=== PATIENT | female | born 1990 | race Hispanic/Latino ===

== ENCOUNTER 2019-05-03 14:40 | Outpatient (CLI) | payer OTHER ==
--- NOTE | 2019-05-03 15:58 | Mammography Report ---
DIGITAL BILATERAL DIAGNOSTIC MAMMOGRAM WITH CAD, 05/03/2019 INDICATION: ABNORMAL BILATERAL BREAST US R92.8. Palpable right breast lump. TECHNIQUE: Digital bilateral mammographic imaging was performed. Spot compression views were obtaine d. This examination was interpreted with the benefit of Computer-aided Detection analysis. COMPARISON: None. Breast Density: The breasts are heterogeneously dense, which may obscure small masses. FINDINGS: Bilateral upper asymmetries demonstrate satisfactory effacement with spot compression. No m ammographic finding at a right upper outer palpable marker. No architectural distortion or suspicious calcifications. IMPRESSION: Negative mammogram. Considering the relatively high density of the breast, recommend bila teral global breast ultrasound with special attention to the upper outer right breast where she feels a lump. Follow up recommendation: Ultrasound Category 0: Incomplete. Needs additional imaging evaluation and/or prior mammograms for comparison. A "normal" or negative report should not discourage follow up or biopsy of a clinically significant f inding. A written summary of these findings will be mailed to the patient. The patient will be entered into a mammography reporting system which will generate a reminder letter for the patient's next appointmen t at the appropriate interval. According to the [employer], yearly mammograms are recommended starting at age 40 and continuing as long as a woman is in good health. Breast MRI is recommended for women with an jose roximately 20-25% or greater lifetime risk of breast cancer, including women with a strong family his tory of breast or ovarian cancer and women who have been treated for Hodgkin's disease. Signer Name: Yovani Gant MD Signed: 05/03/2019 3:53 PM Workstation Name: [id number]
== END 2019-05-03 14:41 | disposition home or self-care (01) ==
LOC: SPVWC 14:40
PROVIDERS: ATTEND Surgery
DX: R92.8 Other abnormal and inconclusive findings on diagnostic imaging of breast (principal)
CPT/HCPCS: 77066

== ENCOUNTER 2019-05-10 10:58 | Outpatient (CLI) | payer OTHER ==
--- NOTE | 2019-05-10 12:26 | Ultrasound Report ---
COMPLETE BILATERAL BREAST ULTRASOUND HISTORY: Right breast lump and bilateral mammographic asymmetries. COMPARISON: 05/03/2019 bilateral diagnostic mammogram. FINDINGS: Complete sonographic evaluation of the right breast including imaging of the four quadrants and subar eolar areas was performed. Ultrasound of the upper outer quadrant at 11:00 7 cm from the nipple demon strates no mass, cyst or cyst or shadowing. Normal fibroglandular structures are identified. A benign cyst at 6:00 2 cm from the nipple measures 6 x 5 x 3 mm. A tiny cyst at 6:00 4 cm from the nipple me asures 3 mm. No other solid mass or suspicious shadowing of the right breast. Complete sonographic evaluation of the left breast including imaging of the four quadrants and subare olar areas was performed. An oval relatively anechoic benign cyst at 2:00 3 cm from the nipple measur es 3.2 x 1.2 x 3.0 cm. It correlates with a circumscribed density on the mammogram. A solid heterogen eous hypoechoic slightly irregular retroareolar mass at 5:00 measures 9 x 5 x 9 mm. No other solid ma ss and no suspicious shadowing of the left breast. IMPRESSION: 1. Right benign cysts and no suspicious finding of the right breast. Recommend clinical follow-up of the palpable area. 2. A benign 3.2 cm left breast cyst at 2:00 3 cm from the nipple. 3. A solid 9 mm left breast mass retroareolar at 5:00. Recommend ultrasound-guided needle biopsy to e xclude malignancy. BIRADS 4: Suspicious abnormality. Signer Name: Yovani Gant MD Signed: 05/10/2019 12:21 PM Workstation Name: [id number]
== END 2019-05-10 10:59 | disposition home or self-care (01) ==
LOC: SPVWC 10:58
PROVIDERS: ATTEND Surgery
DX: N60.02 Solitary cyst of left breast (principal); R92.8 Other abnormal and inconclusive findings on diagnostic imaging of breast

== ENCOUNTER 2019-06-02 13:58 | Outpatient (CLI) | payer OTHER ==
--- NOTE | 2019-06-02 15:36 | Ultrasound Report ---
ULTRASOUND-GUIDED NEEDLE CORE BIOPSY RIGHT BREAST WITH CLIP PLACEMENT CLINICAL: A 9 mm retroareolar mass at 5:00 FINDINGS: The procedure was explained to the patient and informed consent was obtained. Ultrasound demonstrated the previously identified mass.. I marked the breast with a felt tip marker and a timeout was called. The skin was prepped with Chloro -Prep and anesthetized with 1% lidocaine. Needle core biopsy was performed through small dermatotomy using ultrasound guidance, 2% lidocaine wi th epinephrine for deep anesthesia and a 14-gauge Achieve biopsy device. 5 cores were obtained and pl aced in formalin. A clip was deployed within the lesion. The patient tolerated the procedure well and there were no apparent complications. Hemostasis was ach ieved with minimal effort and a sterile dressing was applied. A post procedure mammogram was not performed because she is 28 years of age. She left the department in good condition and was given instructions for wound care and follow-up. IMPRESSION: Uncomplicated ultrasound guided needle core biopsy with clip placement left breast. Signer Name: oYvani Gant MD Signed: 06/02/2019 3:31 PM Workstation Name: [id number]
== END 2019-06-02 13:59 | disposition home or self-care (01) ==
LOC: SPVWC 13:58
PROVIDERS: ATTEND Surgery
DX: N63.23 Unspecified lump in the left breast, lower outer quadrant (principal); D24.2 Benign neoplasm of left breast
CPT/HCPCS: 88305

== ENCOUNTER 2019-11-08 09:21 | Outpatient (CLI) | payer OTHER | END 2019-11-08 09:22 | disposition home or self-care (01) | LOC: SPVWC 09:21 | PROVIDERS: ATTEND Surgery | DX: N60.02 Solitary cyst of left breast (principal); D24.2 Benign neoplasm of left breast ==